=== PATIENT | female | born 1960 | race Caucasian/White ===

== ENCOUNTER → 2018-05-02 19:15 | Outpatient (CLI) | payer SELFPAY | END | disposition home or self-care (01) | LOC: D.MAMMO 14:30 | DX: Z12.31 Encounter for screening mammogram for malignant neoplasm of breast (principal) ==

== ENCOUNTER 2018-06-05 08:00 | Outpatient (CLI) | payer SELFPAY | END 2018-06-05 09:00 | disposition home or self-care (01) | LOC: D.MAMMO 08:00 | PROVIDERS: ATTEND Family Medicine | DX: R92.8 Other abnormal and inconclusive findings on diagnostic imaging of breast (principal) ==

== ENCOUNTER 2019-09-27 07:54 | Emergency (ER) | payer BC ==
[~2019-09-27] VITALS: Ht 165.1 cm; Wt 77.3 kg
[2019-09-27 07:54] VITALS: Ht 165.1 cm; Wt 77.3 kg
[2019-09-27] MEDS ORDERED: ESTRACE 0.5 MG0.5 MG PO (08:00)
[2019-09-27] MEDS ORDERED: SYNTHROID75 MCG PO (08:00)
[2019-09-27 09:27] VITALS: BP 143/93
[2019-09-27] MEDS ORDERED: HYDROCODON-ACE1 EAC2 PO (09:28)
== END 2019-09-27 09:41 | disposition home or self-care (01) ==
LOC: D.ER 07:54
DX: S92.502A Displaced unspecified fracture of left lesser toe(s), initial encounter for closed fracture (principal); M79.18 Myalgia, other site; M79.672 Pain in left foot; X58.XXXA Exposure to other specified factors, initial encounter; Y93.9 Activity, unspecified; Y92.9 Unspecified place or not applicable; E07.9 Disorder of thyroid, unspecified